=== PATIENT | male | born 1955 | race Caucasian/White ===

== ENCOUNTER 2019-11-07 14:18 | Emergency (ER) | payer OTHER ==
[~2019-11-07] VITALS: Ht 172.7 cm; Wt 77.1 kg
[2019-11-07 14:26] VITALS: BP 119/82
--- NOTE | 2019-11-07 14:40 | NUR ---
Patient discharged to home in stable condition. Written and verbal after care instructions given. Patient verbalizes understanding of instruction.
== END 2019-11-07 14:42 | disposition home or self-care (01) ==
LOC: ER 14:22
DX: K40.90 Unilateral inguinal hernia, without obstruction or gangrene, not specified as recurrent (principal); Z98.890 Other specified postprocedural states

== ENCOUNTER 2021-08-28 02:11 | Emergency (ER) | payer MEDICARE, OTHER ==
[~2021-08-28] VITALS: Ht 172.7 cm; Wt 81.6 kg
[2021-08-28 02:34] VITALS: BP 126/70
--- NOTE | 2021-08-28 02:34 | NUR ---
PT BIBWIFE C/O REDNESS & PAIN TO RFA. PUSTULE NOTED. PT A/OX4. TOLERATING R/A WELL WITH NO SOB. CONNECTED PT TO POX AND MONITOR. SAFETY MEASURES IN PLACE. PT AMBULATORY
[2021-08-28] MEDS ORDERED: SULF1TAB48 PO (02:36)
[2021-08-28] MEDS ORDERED: CEPH500T PO (02:36)
[2021-08-28] MEDS ORDERED: CEPHALEXIN MONOHYDRATE 500 MG CAPSULE PO ONE ×2 (02:39→03:00)
[2021-08-28] MEDS ORDERED: SULFAMETH/TRIMETH 800/160 MG 1 UDTAB TABLET ONE (02:39)
--- NOTE | 2021-08-28 02:43 | NUR ---
Patient discharged to home in stable condition. Written and verbal after care instructions given. Patient verbalizes understanding of instruction.
[2021-08-28] MEDS ORDERED: SULFAMETH/TRIMETH 800/160 MG 1 UDTAB TABLET PO ONE (03:00)
== END 2021-08-28 02:44 | disposition home or self-care (01) ==
LOC: ER 02:16
DX: L03.113 Cellulitis of right upper limb (principal); Z90.49 Acquired absence of other specified parts of digestive tract; Z93.3 Colostomy status; Z79.899 Other long term (current) drug therapy

== ENCOUNTER 2022-07-11 08:05 | Emergency (ER) | payer MEDICARE, OTHER ==
[~2022-07-11] VITALS: Ht 172.7 cm; Wt 77.1 kg
[~2022-07-11 08:05] MED LIST: CEPH500T PO; SULF1TAB48 PO
--- NOTE | 2022-07-11 08:25 | NUR ---
PT WALKED INTO ER C/O FACIAL BLEEDING POSSIBLE FROM NOSE, S/P TRIP AND FALL. PT ADMITS TO "PASSING OUT FOR A SECOND". AMBULATED TO BED WITH STEADY GAIT, CONNECTED TO MONITOR. VSS. AWAITING MD ORDERS.
--- NOTE | 2022-07-11 08:39 | NUR ---
AT BEDSIDE FOR EVAL.
[2022-07-11] MEDS ORDERED: ACETAMINOPHEN ES 500 MG TABLET ONE (08:57)
[2022-07-11] MEDS ORDERED: ACETAMINOPHEN ES 500 MG TABLET PO ONE (09:00)
[2022-07-11 10:28] VITALS: BP 142/86
--- NOTE | 2022-07-11 10:29 | NUR ---
Patient discharged to home in stable condition. Written and verbal after care instructions given. Patient verbalizes understanding of instruction.
== END 2022-07-11 10:30 | disposition home or self-care (01) ==
LOC: ER 08:09
DX: S09.90XA Unspecified injury of head, initial encounter (principal); Z98.890 Other specified postprocedural states; Z79.899 Other long term (current) drug therapy; V89.9XXA Person injured in unspecified vehicle accident, initial encounter; Y93.89 Activity, other specified; Y92.89 Other specified places as the place of occurrence of the external cause; Y99.8 Other external cause status
CPT/HCPCS: 70450-TC; 70486-TC; 71045-TC; 72125-TC